=== PATIENT | female | born 1990 | race Caucasian/White ===

== ENCOUNTER 2019-11-01 20:17 | Emergency (ER) | payer OTHER, SELFPAY ==
[2019-11-01 20:18] VITALS: BP 140/88; PULSE 83; RESP 18; TEMP 36.4; O2SAT 100; BMI 18.8
--- NOTE | 2019-11-01 20:43 | ED.DCSUM_ITS ---
- ER Visit Summary Date of Service: 11/01/19 Chief Complaint: Facial hives and itching History of Present Illness: The patient is a 29 F no significant past medical or surgical history. Currently on no medications. Was boating yesterday they thought she may have gotten bit on her right ear by some insects. Today is developed facial rash with hives and itching. No swelling of her lips and tongue. No wheezing. No trouble swallowing or breathing. Prior history of a similar type of reaction that resolved with Benadryl. She has been taking Benadryl today without significant relief. She denies any new soaps, colognes or detergents. Physical Examination: Appearing young female vital signs stable afebrile. H EENT exam pupils are unreactive laser motions are intact. Lips and tongue are nonswollen. No trouble swallowing or breathing. Rash to her face and hives involving her right ear. Neck nontender. Lungs clear to auscultation bilaterally. No wheezing. Heart regular rhythm no murmur. Rate about 80. Abdomen soft nontender. Back nontender. Moving all 4 extremities. Neurovascular intact. Other than her face ear and right side of her neck her trunk and extremities do not have the rash. Her logically she is awake and alert. Test Results: None Emergency Department Course and Treatment: Acute allergic reaction possibly to insect stings. Prednisone 60 mg here. Treatment Plan: Prednisone 40 mg a day until rash is gone. Benadryl for itching and reaction. Follow-up with not improving. Return if worse. Disposition: Discharge Impression: Acute allergic reaction secondary to insect bites with facial rash and hives This note was generated with [employer] dictation software. It may contain incorrect words, spelling, and punctuation that were not noted in review of the chart prior to signing ED Disposition - Plan for ED Patient: Referrals: Care Physician,No Primary [Primary Care Provider] -
--- NOTE | 2019-11-01 20:45 | ED.DEP ---
ED Disposition - Plan for ED Patient: Disposition: Home or Assisted Living Instructions: ED Allergic Reaction Local Other Prescriptions: predniSONE tablet 40 mg PO DAILY 5 Days tab Prescription Printed Referrals: Adam Carl MD [STAFF PHYSICIAN] - 3-5 Days if not improving Additional Instructions: Cool compresses to your face and neck Benadryl as needed for itching and hives. Prednisone 40 mg a day until rash is gone. Return if worse. Follow-up if not improving.
[2019-11-01] MEDS: predniSONE 20 MG Tablet 60 MG PO (21:22)
[2019-11-01 21:24] VITALS: BP 117/78
== END 2019-11-01 21:28 | disposition home or self-care (01) ==
LOC: ED 20:49
PROVIDERS: Emergency Provider Emergency Medicine
DX: T63.481A Toxic effect of venom of other arthropod, accidental (unintentional), initial encounter (principal); L50.0 Allergic urticaria; Y92.814 Boat as the place of occurrence of the external cause
CPT/HCPCS: 99283